=== PATIENT | female | born 1990 | race Caucasian/White ===

== ENCOUNTER 2016-04-29 09:45 | Emergency (ER) | payer OTHER ==
[~2016-04-29] VITALS: Ht 154.9 cm; Wt 52.6 kg
[2016-04-29 09:52] VITALS: BP 121/80
--- NOTE | 2016-04-29 10:29 | ED AMS/SEIZURE/WEAK/DIZZY ---
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 LAST MENSES: 04/10/16. PT C/O MILD HEADACHE AT THIS TIME. Triage Nurses Notes Reviewed? yes Onset: Abrupt Duration: hour(s):, constant, continues in ED Timing: recent history Injury Environment: work : No Patient currently breastfeeds: No HPI: 25-year-old female comes into emergency room for further evaluation of dizziness. Patient reports that she went to work today and was feeling fine and when she walked into work there was a strange smell in the place. Everybody else smelt it as well. She went outside and felt slightly dizzy. It was determined that there was a skunk in the building. Patient reports that she felt like things were spinning at the time but those symptoms have resolved and she has just a mild headache. No vomiting. No chest pain shortness of breath or palpitations. No other prior history of this in the past. Denies any other associated symptoms. Her workplace offered everyone an evaluation and she accepted and came in by ambulance (TRENTON JACKSON) Past History Travel History Traveled to [place] past 21 day No Medical History Any Pertinent Medical History? 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 No (TRENTON JACKSON) Review of Systems Review of Systems Constitutional: Reports: no symptoms. EENTM: Reports: no symptoms. Respiratory: Reports: no symptoms. Cardiovascular: Reports: no symptoms. GI: Reports: no symptoms. Genitourinary: Reports: no symptoms. Musculoskeletal: Reports: no symptoms. Skin: Reports: no symptoms. Neurological/Psychological: Reports: no symptoms. Hematologic/Endocrine: Reports: no symptoms. Immunologic/Allergic: Reports: no symptoms. All Other Systems: Reviewed and Negative (TRENTON JACKSON) Physical Exam Physical Exam General Appearance: well developed/nourished, no apparent distress, alert Head: atraumatic, normal appearance Eyes: Bilateral: normal appearance, PERRL, EOMI. Ears, Nose, Throat: normal pharynx, normal ENT inspection, hearing grossly normal Neck: normal inspection, full range of motion Respiratory: normal breath sounds, chest non-tender, no respiratory distress Cardiovascular: regular rate/rhythm Gastrointestinal: soft Back: normal inspection Extremities: normal range of motion Neurologic/Psych: no motor/sensory deficits, awake, alert, oriented x 3, normal gait, normal mood/affect, special officer automat II-XII nml as tested Skin: intact, normal color Core Measures ACS in differential dx? No CVA/TIA Diagnosis: No Severe Sepsis Present: No Septic Shock Present: No (TRENTON JACKSON) Progress Differential Diagnosis: arrythmia, alcohol intoxication, anemia, dehydration, drug intoxication, encephalitis, electrolyte imbalance, intracranial Hem., meningitis, Meniere's disease, postural hypotension, presyncope Plan of Care: see below Initial ED EKG: none Comments: 04/29/2016 11:04:02 AM Patient clinically looks well. Nontoxic-appearing. In no apparent distress. Due to the fact the patient's symptoms have resolved and it was positive exposure to a skunk I do not feel any further workup is needed at this time. Patient to return if any concerns/worsening of symptoms. Patient understands and agrees with plan of care. (TRENTON JACKSON) Departure Departure Disposition: HOME OR SELF CARE Condition: Stable Clinical Impression Primary Impression: Dizziness Referrals: UNKNOWN (PCP/Family) Additional Instructions: Return if any concerns worsening symptoms. Follow up with her primary care doctor. Please go over all results of today's visit with your primary care doctor. Contact your primary care doctor to let them know you were here in the emergency room. There may be nonspecific findings which may not be related to your visit today here in the emergency room but may require further evaluation and chronic monitoring by your primary care doctor. If you had a laceration today the chance of foreign body always remains. You should follow-up with your primary care doctor for recheck in 3-5 days for a wound check. If you had an x-ray done there is a chance that a fracture could have been missed on initial read and you should follow-up with your primary care doctor for repeat x-rays if symptoms persist. If your blood pressure was elevated here in the emergency room please have rechecked by her primary care doctor within the next 48 hours by your primary care doctor. If you were prescribed a narcotic here in the emergency room or any type of controlled substances you're not allowed to drive while taking this medication or operate any type of heavy machinery. Narcotics can make you feel lightheaded dizziness nausea and can cause constipation. You may need to bean picker a stool softener. Thank you for choosing [facility] emergency room. Please return to the emergency room immediately if you have any other concerns worsening of symptoms. Departure Forms: Customer Survey General Discharge Information Prescriptions: Current Visit Scripts No Known Home Medications (TRENTON JACKSON) PA/MONORAIL CAR OPERATOR Co-Sign Statement Statement: ED Attending supervision documentation- [] I saw and evaluated the patient. I have also reviewed all the pertinent lab results and diagnostic results. I agree with the findings and the plan of care as documented in the PA's/MONORAIL CAR OPERATOR's documentation. [X] I have reviewed the ED Record and agree with the PA's/MONORAIL CAR OPERATOR's documentation. [] Additions or exceptions (if any) to the PAs/MONORAIL CAR OPERATOR's note and plan are summarized below: [] (ARIEL HERNANDEZ,MOO Corbett)
== END 2016-04-29 10:36 ==
LOC: ERH 09:45
DX: R42 Dizziness and giddiness (principal)
CPT/HCPCS: 99282

== ENCOUNTER 2016-08-06 19:02 | Emergency (ER) | payer OTHER ==
[~2016-08-06] VITALS: Ht 154.9 cm; Wt 52.2 kg
[2016-08-06 19:16] VITALS: BP 122/85
--- NOTE | 2016-08-06 20:38 | ED GENERAL ADULT ---
History of Present Illness General Chief Complaint: Chest Pain Stated Complaint: "PER PT LT CP" Source: patient, family Exam Limitations: no limitations Vital Signs & Intake/Output Vital Signs & Intake/Output Vital Signs Date Time Temp Pulse Resp B/P B/P Pulse O2 O2 Flow FiO2 Mean Ox Delivery Rate 08/06 1916 98.9 90 20 122/85 98 Room Air ED Intake and Output 08/07 0000 08/06 1200 Intake Total Output Total Balance Patient 115 lb Weight Weight Estimated Measurement Method Allergies Coded Allergies: naproxen (Severe, CANT BREATHE, RASH 04/29/16) Reconcile Medications No Known Home Medications Triage Note: RECEIVED 26 YO FEMALE C/O SHARP L SIDED CHEST PAIN TO L BREAST AREA, STARTED MONDAY. PT REPORTS SHE NOW FEELS A LUMP IN THE AREA. PT DENIES SOB AND DENIES SOB WITH DEEP BREATHS. UNKNOWN FAMILY CARDIAC HX. Triage Nurses Notes Reviewed? yes : No Patient currently breastfeeds: No HPI: 26F NO PMH PRESENTING WITH 3-4 DAYS OF LEFT SIDED CHEST PAIN, DESCRIBED CHEST WALL INTERMITTENT BURNING AND PAIN WITH TENDERNESS TO THE LEFT BREAST AREA. NON -EXERTIONAL, NO SOB, NO PALPITATIONS. NO PERSONAL CARDIAC HISTORY BUT MOTHER AND GRANDMOTHER WITH HISTORY OF HEART DISEASE. ACTIVE SMOKER, NO DRUGS OR ETOH. PAIN NOT WORSE WITH MOVEMENT BUT IS REPRODUCIBLE IN THE UPPER LEFT CHEST WALL. (EVELIN WILLOUGHBY MD) Past History Travel History Traveled to [place] past 21 day No Medical History Any Pertinent Medical History? 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 No (EVELIN WILLOUGHBY MD) Review of Systems Review of Systems Constitutional: Reports: no symptoms. EENTM: Reports: no symptoms. Respiratory: Reports: no symptoms. Cardiovascular: Reports: see HPI. GI: Reports: no symptoms. Genitourinary: Reports: no symptoms. Musculoskeletal: Reports: see HPI. Skin: Reports: no symptoms. Neurological/Psychological: Reports: no symptoms. Hematologic/Endocrine: Reports: no symptoms. Immunologic/Allergic: Reports: no symptoms. All Other Systems: Reviewed and Negative (EVELIN WILLOUGHBY MD) Physical Exam Physical Exam General Appearance: well developed/nourished, no apparent distress Head: atraumatic, normal appearance Eyes: Bilateral: normal appearance. Ears, Nose, Throat: normal pharynx, normal ENT inspection Neck: normal inspection, supple Respiratory: normal breath sounds, CHEST WALL TENDER 1CM MASS AT 11 O'CLOCK POSITION RELATIVE TO NIPPLE, MOBILE, NO DISCHARGE, NO SKIN CHANGES Cardiovascular: regular rate/rhythm Gastrointestinal: soft, non-tender Back: normal inspection, normal range of motion Extremities: normal inspection, normal range of motion Neurologic/Psych: no motor/sensory deficits Skin: intact Core Measures ACS in differential dx? No CVA/TIA Diagnosis: No Severe Sepsis Present: No Septic Shock Present: No (EVELIN WILLOUGHBY MD) Progress Differential Diagnoses I considered the following diagnoses in my evaluation of the patient: ACS, PALPITATIONS, AORTIC DISSECTION, BREAST CANCER, ABSCESS, AMI, COSTOCHONDRITIS Plan of Care: Orders Procedure Date/time Status EKG 08/07 1903 Active NO SYSTEMIC SYMPTOMS, MASS IS TENDER BUT MOBILE AND SOFT. EKG NSR NO ACUTE CHANGES. PATIENT CAN BE DISCHARGED WITH OUTPATIENT FOLLOW UP WITH BREAST ULTRASOUND AND FOLLOW UP IN BREAST CENTER FOR EVALUATION OF MASS. ENCOURAGE SMOKING CESSATION AND DECREASED CAFFEINE INTAKE. (EVELIN WILLOUGHBY MD) Initial ED EKG: NSR, no ST T wave changes (EVELIN WILLOUGHBY MD) Departure Departure Time of Disposition: 2035 Disposition: HOME OR SELF CARE Condition: Stable Clinical Impression Primary Impression: Breast mass Secondary Impressions: Chest wall pain Referrals: HARJINDER HERNANDEZ,ANTOINE UNKNOWN (PCP/Family) Additional Instructions: FOLLOW UP WITH BREAST ULTRASOUND AND BREAST CENTER FOR EVALUATION OF MASS. Departure Forms: Customer Survey General Discharge Information Prescriptions: Current Visit Scripts No Known Home Medications (EVELIN WILLOUGHBY MD) Resident Co-Sign Statement Statement: ED Attending supervision documentation- [X] I saw and evaluated the patient. I have also reviewed all the pertinent lab results and diagnostic results. I agree with the findings and the plan of care as documented in the Resident's documentation. [X] I have reviewed the ED Record and agree with the Resident's documentation. [] Additions or exceptions (if any) to the Resident's note and plan are summarized below: [] (ERIC HERNANDEZ,WILAIN) Critical Care Note Critical Care Note Critical Care Time: 30-74 min (FARTUN HERNANDEZ,EVELIN)
== END 2016-08-06 20:51 ==
LOC: ERH 19:02
DX: N63 Unspecified lump in breast (principal); R07.89 Other chest pain
CPT/HCPCS: 93005; 93010

== ENCOUNTER 2017-03-16 10:14 | Emergency (ER) | payer OTHER ==
--- NOTE | 2017-03-16 11:37 | ED GI/GU/ABDOMINAL COMPLAINT ---
History of Present Illness General Chief Complaint: Abdominal Pain/Flank Pain Stated Complaint: ABD PAIN Source: patient Exam Limitations: no limitations Vital Signs & Intake/Output Vital Signs & Intake/Output Vital Signs Date Time Temp Pulse Resp B/P B/P Pulse O2 O2 Flow FiO2 Mean Ox Delivery Rate 03/16 1210 96.0 96 15 113/64 97 Room Air 03/16 1206 97 03/16 1020 98.4 78 18 90/60 98 Room Air Allergies Coded Allergies: naproxen (Severe, CANT BREATHE, RASH 04/29/16) Reconcile Medications No Known Home Medications Triage Note: PT BIBA FROM WORK WITH ABD PAIN. STATES PAIN IS TO HER LOWER ABD AND STATES PAIN IS COMING IN WAVES AND FEELS LIKE CONTRACTIONS, BUT HAS HER TUBES TIED SHE STATES. 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 REPORTS SHE HAS NOTICED AN INCREASE IN FREQUENCY WITH URINATION RECENTLY. Triage Nurses Notes Reviewed? yes ? n Is pt currently ? No Onset: Abrupt Duration: day(s):, intermittent Timing: recent history Quality/Severity: cramping, moderate, sharpness, severe Location: suprapubic Radiation: no radiation Activities at Onset: none Sexually Active: Yes Last Time You Were Sexual: less than 2 months ago Use of Protection: No No Modifying Factors: none HPI: 26-year-old female comes into emergency room for further evaluation of lower abdominal contractions as she describes it. She has a history of tubal ligation and umbilical hernia repair. Reports recently she's been getting waves of pain in her lower abdomen. Denies any increased frequency or burning with urination. Denies any vaginal discharge or vaginal bleeding. Denies any fever. Some intermittent vomiting. Nothing seems to make the symptoms better. She comes in for further evaluation. (Kemar Kwan) Past History Travel History Traveled to [place] past 21 day No Medical History Any Pertinent Medical History? 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 No (Kemar Kwan) Review of Systems Review of Systems Constitutional: Reports: no symptoms. EENTM: Reports: no symptoms. Respiratory: Reports: no symptoms. Cardiovascular: Reports: no symptoms. GI: Reports: see HPI. Genitourinary: Reports: see HPI. Musculoskeletal: Reports: no symptoms. Skin: Reports: no symptoms. Neurological/Psychological: Reports: no symptoms. Hematologic/Endocrine: Reports: no symptoms. Immunologic/Allergic: Reports: no symptoms. All Other Systems: Reviewed and Negative (Kemar Kwan) Physical Exam Physical Exam General Appearance: well developed/nourished, no apparent distress, alert, awake Head: atraumatic, normal appearance Eyes: Bilateral: normal appearance, EOMI. Ears, Nose, Throat, Mouth: hearing grossly normal, moist mucous membrane Neck: normal inspection, full range of motion Respiratory: normal breath sounds, no respiratory distress Cardiovascular: regular rate/rhythm Gastrointestinal: soft Back: normal inspection Extremities: normal range of motion Neurologic/Psych: awake, alert, oriented x 3, normal gait, normal mood/affect Skin: intact, normal color Core Measures ACS in differential dx? No Sepsis Present: No Sepsis Focused Exam Completed? No (Kemar Kwan) Progress Differential Diagnosis: appendicitis, biliary colic, diverticulitis, ectopic , kidney stone, ovarian cyst, ovarian torsion, pancreatitis, PID/ cervicitis, UTI/pyelo Plan of Care: Orders Procedure Date/time Status URINE 03/16 1131 Complete URINALYSIS 03/16 1131 Complete LIPASE 03/16 1131 Complete COMPREHENSIVE METABOLIC PANEL 03/16 1131 Complete CBC WITHOUT DIFFERENTIAL 03/16 1131 Complete AMYLASE 03/16 1131 Complete Laboratory Tests 03/16/17 1143: Anion Gap 14, Estimated GFR > 60, BUN/Creatinine Ratio 15.7, Glucose 89, Calcium 9.9, Total Bilirubin 0.4, AST 16, ALT 33, Alkaline Phosphatase 43, Total Protein 7.1, Albumin 4.4, Globulin 2.7, Albumin/Globulin Ratio 1.6, Amylase 55, Lipase 60, CBC w Diff NO MAN DIFF REQ, RBC 4.43, MCV 91.6, MCH 30.8, RDW 13.2, MPV 8.2, Gran % 72.8, Lymphocytes % 20.4 L, Monocytes % 4.1, Eosinophils % 1.8, Basophils % 0.9, Absolute Granulocytes 9.3 H, Absolute Lymphocytes 2.6, Absolute Monocytes 0.5, Absolute Eosinophils 0.2, Absolute Basophils 0.1, PUBS MCHC 33.6, Urine Color YEL, Urine Clarity CLEAR, Urine pH 6.5, Ur Specific [place] 1.015, Urine Protein NEG, Urine Ketones NEG, Urine Nitrite NEG, Urine Bilirubin NEG, Urine Urobilinogen 0.2, Ur Leukocyte Esterase NEG, Ur Microscopic EXAM NOT REQUIRED, Urine Hemoglobin NEG, Urine Glucose NEG, Urine Test NEGATIVE Initial ED EKG: none Comments: 03/16/2017 12:40:37 PM Patient reports that she cannot stay for the CAT scan because she has to pick her child up from school. I explained to her and cannot rule out any type of hernia complications or appendicitis or any other potentially life-threatening medical conditions. She has a slight elevated white blood cell count. It is recommended that she go for a CAT scan today after she picked up her child. She should return here to the emergency room. She reports that she lives in [place] and will go to [facility] [place] for CAT scan. I also explained the possibility of pelvic infection. Patient will follow up for pelvic exam. She is unable to do it now due to time restraint. Patient is mentally competent and able to make own medical decisions. She understands everything that has been explained to her and still wants to leave AGAINST MEDICAL ADVICE. (Kemar Kwan) Departure Departure Disposition: HOME OR SELF CARE Condition: Stable Clinical Impression Primary Impression: Abdominal pain Referrals: Kadeem HERNANDEZ [facility],Dmitry Cox (PCP/Family) Additional Instructions: At this point you have declined CAT scan and are leaving AGAINST MEDICAL ADVICE. I cannot rule out any type of appendicitis or complication from your hernia without a CT scan of her abdomen. Please follow up for a CAT scan with your primary care doctor or return to the emergency room and you can or return for any other worsening of symptoms. You you should also follow up for a pelvic exam to rule out any type of infection. Please go over all results of today's visit with your primary care doctor. Contact your primary care doctor to let them know you were here in the emergency room. There may be nonspecific findings which may not be related to your visit today here in the emergency room but may require further evaluation and chronic monitoring by your primary care doctor. If you had a laceration today the chance of foreign body always remains. You should follow-up with your primary care doctor for recheck in 3-5 days for a wound check. If you had an x-ray done there is a chance that a fracture could have been missed on initial read and you should follow-up with your primary care doctor for repeat x-rays if symptoms persist. If your blood pressure was elevated here in the emergency room please have rechecked by our primary care doctor within the next 48. If you were prescribed a narcotic here in the emergency room or any type of controlled substances you're not allowed to drive while taking this medication or operate any type of heavy machinery. Narcotics can make you feel lightheaded dizziness nausea and can cause constipation. You may need to mushroom picker a stool softener. Thank you for choosing [facility] emergency room. Please return to the emergency room immediately if you have any other concerns worsening of symptoms. Departure Forms: Customer Survey D/C INS-APPENDICITIS EXCLUSION General Discharge Information Prescriptions: Current Visit Scripts No Known Home Medications (Kemar Kwan) PA/LEADITE HEATER Co-Sign Statement Statement: ED Attending supervision documentation- [] I saw and evaluated the patient. I have also reviewed all the pertinent lab results and diagnostic results. I agree with the findings and the plan of care as documented in the PA's/LEADITE HEATER's documentation. [x] I have reviewed the ED Record and agree with the PA's/LEADITE HEATER's documentation. [] Additions or exceptions (if any) to the PAs/LEADITE HEATER's note and plan are summarized below: [] (Polo Blackburn DO ([facility]))
[2017-03-16 11:54] LABS: ABSOLUTE BASOPHIL COUNT 0.1 /CUMM (0.0-0.2); ABSOLUTE EOSINOPHIL COUNT 0.2 /CUMM (0.0-0.7); ABSOLUTE GRANULOCYTE CT 9.3 /CUMM (1.4-6.5); ABSOLUTE LYMPH COUNT 2.6 /CUMM (1.2-3.4); ABSOLUTE MONOCYTE COUNT 0.5 /CUMM (0.10-0.60); BASOPHIL % 0.9 % (0.0-2.0); EOSINOPHIL % 1.8 % (0-5); GRANULOCYTE % 72.8 % (42.2-75.2); HEMATOCRIT 40.6 % (37-47); MEAN CORPUSCULAR HGB 30.8 PG (27.0-31.0); MEAN CORPUSCULAR HGB CONC 33.6 G/DL (33.0-37.0); MEAN CORPUSCULAR VOLUME 91.6 FL (81.0-99.0); MEAN PLATELET VOLUME 8.2 FL (7.4-10.4); PLATELET COUNT 385 /CUMM (130-400); RBC DISTRIBUTION WIDTH 13.2 % (11.5-14.5); RED BLOOD CELL CT 4.43 /CUMM (4.20-5.40); WHITE BLOOD CELL COUNT 12.7 /CUMM (4.8-10.8)
[2017-03-16 12:10] VITALS: BP 113/64
== END 2017-03-16 13:08 ==
LOC: ERH 10:14
PROVIDERS: Physician Assistant Medical
DX: R10.30 Lower abdominal pain, unspecified (principal)
CPT/HCPCS: 81003; 81025

== ENCOUNTER 2017-07-06 09:40 | Emergency (ER) | payer OTHER ==
[~2017-07-06] VITALS: Ht 154.9 cm; Wt 53.5 kg
--- NOTE | 2017-07-06 09:44 | ED ANKLE/FOOT INJURY COMPLAINT ---
History of Present Illness General Chief Complaint: Fall Stated Complaint: FALL Source: patient Exam Limitations: no limitations Vital Signs & Intake/Output Vital Signs & Intake/Output Vital Signs Date Time Temp Pulse Resp B/P B/P Pulse O2 O2 Flow FiO2 Mean Ox Delivery Rate 07/06 1110 98.0 80 20 118/80 99 Room Air 07/06 0948 98.1 84 18 120/86 99 Room Air Allergies Coded Allergies: naproxen (Severe, CANT BREATHE, RASH 04/29/16) Reconcile Medications No Known Home Medications Triage Nurses Notes Reviewed? yes Occurred: just prior to arrival Duration: hour(s): Timing: recent history Severity: moderate, severe Pain/Injury Location: Right: Foot, Ankle. Method of Injury: twisted No Modifying Factors: none HPI: 27-year-old female comes into the emergency room with complaints of right ankle pain and swelling. Patient reports that she was coming down steps and twisted her right ankle and she felt a pop. She has associated swelling. She came in by ambulance. Denies any trauma anywhere else. Denies hitting her head. (Kemar Kwan) Past History Medical History Any Pertinent Medical History? 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 No (Kemar Kwan) Review of Systems Review of Systems Constitutional: Reports: no symptoms. EENTM: Reports: no symptoms. Respiratory: Reports: no symptoms. Cardiovascular: Reports: no symptoms. GI: Reports: no symptoms. Genitourinary: Reports: no symptoms. Musculoskeletal: Reports: see HPI. Skin: Reports: no symptoms. Neurological/Psychological: Reports: no symptoms. Hematologic/Endocrine: Reports: no symptoms. Immunologic/Allergic: Reports: no symptoms. All Other Systems: Reviewed and Negative (Kemar Kwan) Physical Exam Physical Exam General Appearance: well developed/nourished, mild distress Head: atraumatic Eyes: Bilateral: normal appearance. Ears, Nose, Throat: normal ENT inspection, hearing grossly normal Neck: normal inspection Cardiovascular/Respiratory: no respiratory distress Back: normal inspection Leg/Knee/Thigh Left: normal inspection Ankle Right: bone tenderness, soft tissue tenderness, swelling, tenderness, limited range of motion Neuro/Vascular: normal motor function, normal sensation Psychiatric: awake, alert, oriented x 3 Skin: intact, normal color, warm/dry (Kemar Kwan) Progress Differential Diagnosis: fracture, dislocation, sprain, contusion Plan of Care: Orders Procedure Date/time Status Durable Medical Equipment 07/06 1017 Active Diagnostic Imaging: Viewed by Me: Radiology Read. Discussed w/RAD: Radiology Read. Radiology Impression: PATIENT: SAYRA NEVES PRESENT AGE: 27 PATIENT ACCOUNT NO: [id number] : 90 LOCATION: [facility] ORDERING PHYSICIAN: Kemar CHAMPION SERVICE DATE: 07/06/17 EXAM TYPE : RAD - XRY-ANKLE 3 OR MORE VIEWS R; XRY-FOOT COMPLETE, R EXAMINATION: XR ANKLE, LEFT XR FOOT, LEFT CLINICAL INFORMATION: Right ankle pain, distal fibula, swelling. Evaluate for fracture. COMPARISON: None TECHNIQUE: AP, oblique, and lateral views of the right ankle are obtained. AP, oblique and lateral views of the right foot are obtained. FINDINGS: Right ankle: There is no fracture or malalignment. The ankle mortise is intact. There is no soft tissue swelling. There are no degenerative changes. Right foot: There is no acute fracture or malalignment. There are no degenerative changes. 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 IMPRESSION: No evidence of acute injury to the right ankle or right foot. DICTATED BY: Dario Ball MD DATE/TIME DICTATED: 07/06/171044 PULVERIZER TENDER:ZAK DATE/TIME TRANSCRIBED:07/06/171044 CONFIDENTIAL, DO NOT COPY WITHOUT APPROPRIATE AUTHORIZATION. <Electronically signed in Other Vendor System> SIGNED BY: Dario Ball MD 07/06/17 1050 (Kemar Kwan) Departure Departure Disposition: HOME OR SELF CARE Condition: Stable Clinical Impression Primary Impression: Right ankle sprain Referrals: Kadeem HERNANDEZ M[facility],Dmitry Cox (PCP/Family) Sunny HERNANDEZ,Angel Santamaria Additional Instructions: Ice. Rest. Motrin for pain. Elevation. Follow-up with orthopedic doctor provided if not better in 3-5 days. If symptoms do not improve you'll require further evaluation with possible repeat x-rays as well as evaluation by command and control specialist. Sprains can last anywhere from days to weeks. No high impact running or jumping if you have an ankle sprain or any type of lower extremity sprain. Return to normal activity only after symptoms have resolved. Please go over all results of today's visit with your primary care doctor. Contact your primary care doctor to let them know you were here in the emergency room. There may be nonspecific findings which may not be related to your visit today here in the emergency room but may require further evaluation and chronic monitoring by your primary care doctor. If you had a laceration today the chance of foreign body always remains. You should follow-up with your primary care doctor for recheck in 3-5 days for a wound check. If you had an x-ray done there is a chance that a fracture could have been missed on initial read and you should follow-up with your primary care doctor for repeat x-rays if symptoms persist. If your blood pressure was elevated here in the emergency room please have rechecked by [facility] primary care doctor within the next 48. If you were prescribed a narcotic here in the emergency room or any type of controlled substances you're not allowed to drive while taking this medication or operate any type of heavy machinery. Narcotics can make you feel lightheaded dizziness nausea and can cause constipation. You may need to continuous pickling line pickler a stool softener. Thank you for choosing [facility] emergency room. Please return to the emergency room immediately if you have any other concerns worsening of symptoms. Departure Forms: Customer Survey General Discharge Information Prescriptions: Current Visit Scripts No Known Home Medications Comments 07/06/2017 10:58:23 AM Ice. Elevation. Tylenol for pain. Follow-up with orthopedic if not better in 3-5 days. Return if any other concerns. (Kemar Kwan) PA/CORK INSULATOR HELPER Co-Sign Statement Statement: ED Attending supervision documentation- [X] I saw and evaluated the patient. I have also reviewed all the pertinent lab results and diagnostic results. I agree with the findings and the plan of care as documented in the PA's/CORK INSULATOR HELPER's documentation. [] I have reviewed the ED Record and agree with the PA's/CORK INSULATOR HELPER's documentation. [] Additions or exceptions (if any) to the PAs/CORK INSULATOR HELPER's note and plan are summarized below: [] (Alexey MORROW,Polo Tan) Procedures Splinting Location: right ankle Manual Alignment Performed: No Pre-Made Type: ankle stirrups Splint Applied By: splint applied by me Pre-Proc Neuro Vasc Exam: normal Post-Proc Neuro Vasc Exam: normal (Kemar Kwan)
--- NOTE | 2017-07-06 10:50 | RADIOLOGY REPORT ---
EXAMINATION: XR ANKLE, LEFT XR FOOT, LEFT CLINICAL INFORMATION: Right ankle pain, distal fibula, swelling. Evaluate for fracture. COMPARISON: None TECHNIQUE: AP, oblique, and lateral views of the right ankle are obtained. AP, oblique and lateral views of the right foot are obtained. FINDINGS: Right ankle: There is no fracture or malalignment. The ankle mortise is intact. There is no soft tissue swelling. There are no degenerative changes. Right foot: There is no acute fracture or malalignment. There are no degenerative changes. 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 IMPRESSION: No evidence of acute injury to the right ankle or right foot.
[2017-07-06 11:10] VITALS: BP 118/80
== END 2017-07-06 11:14 ==
LOC: ERH 09:40
DX: S93.401A Sprain of unspecified ligament of right ankle, initial encounter (principal); X58.XXXA Exposure to other specified factors, initial encounter; Y92.9 Unspecified place or not applicable; Y93.9 Activity, unspecified
CPT/HCPCS: 73610-RT; 73630-RT